=== PATIENT | female | born 1945 | race Caucasian/White ===

== ENCOUNTER 2021-12-27 14:16 | Inpatient (IN) ==
[2021-12-27] MEDS ORDERED: Ipratropium/Albuterol Neb 3 ML IH ONE ×2 (14:27→16:02)
[2021-12-27 14:52] LABS: VBG HCO3 38 mEq/L (21-27); VBG PCO2 83 mmHg (41-51); VBG PH 7.26 pH Units (7.32-7.42); VBG PO2 51 mmHg (25-50)
[2021-12-27 14:54] LABS: Basophils % 0.1 %; Hematocrit 34.5 % (35.3-44.9); Hemoglobin 10.8 g/dL (11.5-15.4); Immature Granulocytes % 0.4 % (0-4); Lymphocytes # 0.4 K/mcL (0.6-4.6); Lymphocytes % 2.7 %; Mean Corpuscular HGB Conc 31.3 g/dL (31.6-35.5); Mean Corpuscular Volume 95.8 fL (83.0-100.0); Mean Platelet Volume 10.3 fL (9.4-12.4); Monocytes # 0.7 K/mcL (0.0-1.3); Monocytes % 4.4 %; Neutrophils # 14.6 K/mcL (1.6-8.9); Platelet Count 480 K/mcL (140-400); Red Cell Distribution Width 14.6 % (11.5-14.5); Segmented Neutrophils % 92.4 %; White Blood Count 15.8 K/mcL (4.3-11.1)
[2021-12-27 15:03] LABS: INR 1.1; Prothrombin Time 12.8 Seconds (9.4-12.1)
[2021-12-27 15:06] LABS: Activated Partial Thrombo Time 29.6 Seconds (26.0-36.0)
[2021-12-27 15:15] LABS: Alanine Aminotransferase 35 Units/L (7-52); Albumin 3.8 g/dL (3.5-5.7); Albumin/Globulin Ratio 1.2 (1.1-2.2); Alkaline Phosphatase 138 Units/L (34-104); Aspartate Amino Transferase 50 Units/L (13-39); BUN/Creatinine Ratio 65 (6-26); Bilirubin,Indirect 0.5 mg/dL (0.0-1.0); Bilirubin,Total 0.5 mg/dL (0.3-1.0); Blood Urea Nitrogen 37 mg/dL (8-23); Calcium 10.1 mg/dL (8.6-10.3); Carbon Dioxide 37 mEq/L (23-29); Chloride 96 mEq/L (98-107); Creatine Kinase 279 Units/L (30-223); Ethanol < 10 mg/dL (Less than 10); Globulin 3.3 g/dL (2.4-3.5); Glucose 138 mg/dL (70-105); Osmolality,Calculated 307 (280-300); Potassium 5.1 mEq/L (3.5-5.1); Sodium 143 mEq/L (136-145); Total Protein 7.1 g/dL (6.4-8.9); Troponin I 0.24 ng/mL (< 0.04); eGFR For African Americans > 60 (> 60); eGFR For Non-African Americans > 60 (> 60)
[2021-12-27] MEDS ORDERED: Iopamidol - 370 500 ML MLS IVP ONE (15:21)
[2021-12-27] MEDS ORDERED: methylPREDNISolone 125 MG/2 ML VIAL IVP ONE (16:03)
[2021-12-27] MEDS: Ipratropium/Albuterol Neb 3 ML IH ONE (16:19)
[2021-12-27] MEDS ORDERED: 0.9 % Sodium Chloride 500 ML IVC ONE ×3 (17:04→20:11)
[2021-12-27 17:05] LABS: VBG HCO3 32 mEq/L (21-27); VBG PCO2 49 mmHg (41-51); VBG PH 7.43 pH Units (7.32-7.42); VBG PO2 165 mmHg (25-50)
[2021-12-27 18:02] LABS: Influenza A PCR Negative (Negative); Influenza B PCR Negative (Negative); Resp. Syncytial Virus PCR Negative (Negative)
[2021-12-27 18:04] LABS: SARS-CoV-2 by PCR (In House) Negative (Negative)
[2021-12-27 19:04] LABS: Bacteria,Urine Few per hpf (None-Few); Bilirubin,Urine Negative (Negative); Blood,Urine Negative (Negative); Clarity,Urine Clear (Clear); Color,Urine Light-Yellow (Yellow); Glucose,Urine (UA) Normal (Normal); Ketones,Urine Negative (Negative); Leukocyte Esterase,Urine Negative (Negative); Mucus,Urine Few per lpf (None-Few); Nitrite,Urine Negative (Negative); Protein,Urine 30 mg/dL (Neg-Trace); Specific Gravity,Urine > 1.030 (1.010-1.025); Squamous Epithelial Cell,Urine Few per hpf (None-Few); Urobilinogen,Urine Normal (Normal); WBC,Urine 0-3 per hpf (0-3)
[2021-12-27 19:05] LABS: Amphetamine Screen,Urine Negative ng/mL (Cutoff=1000); Barbiturate Screen,Urine Negative ng/mL (Cutoff=200); Benzodiazepines Screen,Urine Negative ng/mL (Cutoff=200); Cannabinoid Screen,Urine Negative ng/mL (Cutoff = 50); Cocaine Screen,Urine Negative ng/mL (Cutoff= 300); Opiate Screen,Urine Negative ng/mL (Cutoff=300); Phencyclidine Screen,Urine Negative ng/mL (Cutoff=25)
[2021-12-27] MEDS ORDERED: Ondansetron ODT 4 MG TAB.RAPDIS SL PRN (22:51)
[2021-12-27] MEDS ORDERED: Naloxone 0.4 MG/ML INJ IVP PRN (22:51)
[2021-12-28] MEDS ORDERED: Ringers Solution, Lactated 1,000 ML IVC ONE (00:16)
[2021-12-28] MEDS ORDERED: Levalbuterol 1 PUFF INHALER IH PRN (00:23)
[2021-12-28] MEDS ORDERED: Nicotine 7 MG PATCH.TD24 TD PRN (00:41)
[2021-12-28 01:04] LABS: Hematocrit 31.8 % (35.3-44.9); Hemoglobin 9.5 g/dL (11.5-15.4); Mean Corpuscular HGB Conc 29.9 g/dL (31.6-35.5); Mean Corpuscular Hemoglobin 29.4 pg (28.0-33.3); Mean Corpuscular Volume 98.5 fL (83.0-100.0); Mean Platelet Volume 10.2 fL (9.4-12.4); Platelet Count 392 K/mcL (140-400); Red Blood Count 3.23 M/mcL (3.82-4.97); Red Cell Distribution Width 14.7 % (11.5-14.5); White Blood Count 10.9 K/mcL (4.3-11.1)
[2021-12-28 01:24] LABS: Alanine Aminotransferase 27 Units/L (7-52); Albumin 3.1 g/dL (3.5-5.7); Albumin/Globulin Ratio 1.1 (1.1-2.2); Alkaline Phosphatase 103 Units/L (34-104); Aspartate Amino Transferase 36 Units/L (13-39); BUN/Creatinine Ratio 63 (6-26); Bilirubin,Total 0.3 mg/dL (0.3-1.0); Blood Urea Nitrogen 30 mg/dL (8-23); Calcium 8.6 mg/dL (8.6-10.3); Carbon Dioxide 33 mEq/L (23-29); Chloride 104 mEq/L (98-107); Globulin 2.7 g/dL (2.4-3.5); Glucose 134 mg/dL (70-105); Osmolality,Calculated 306 (280-300); Potassium 4.8 mEq/L (3.5-5.1); Sodium 144 mEq/L (136-145); Total Protein 5.8 g/dL (6.4-8.9); eGFR For African Americans > 60 (> 60); eGFR For Non-African Americans > 60 (> 60)
[2021-12-28] MEDS ORDERED: Perflutren Lipid Microsphere 1.3 ML in 0.9 % Sodium Chloride 8.7 ML IVP PRN (01:46)
[2021-12-28] MEDS ORDERED: Albuterol 2.5 MG/3 ML NEBULIZER IH PRN (01:53)
[2021-12-28] MEDS ORDERED: Levalbuterol Neb 0.63 MG/3 ML IH PRN (01:56)
[2021-12-28] MEDS ORDERED: Gadolinium Contrast Agent (WT Based) IV PRN (01:59)
[2021-12-28 02:35] LABS: Vitamin B12 > 1500 pg/mL (250-1100)
[2021-12-28] MEDS: Azithromycin 500 MG in 0.9 % Sodium Chloride 250 ML IVPB SCH ×2 (03:17→23:41)
[2021-12-28] MEDS: 0.9 % Sodium Chloride 1,000 ML IVC SCH ×2 (03:17→14:07)
[2021-12-28 03:29] LABS: Troponin I 0.43 ng/mL (< 0.04)
[2021-12-28 03:40] LABS: Thyroid Stimulating Hormone 0.145 mcIU/mL (0.340-5.600)
[2021-12-28 03:48] LABS: Creatine Kinase 172 Units/L (30-223)
[2021-12-28 04:09] LABS: Folate > 22.3 ng/mL (3.0-16.0)
[2021-12-28] MEDS: Ipratropium/Albuterol Neb 3 ML IH SCH ×3 (04:21→15:36)
[2021-12-28 04:38] LABS: ABG Base Excess 7 mEq/L (-2 to 3); ABG HCO3 37 mEq/L (21-27); ABG Oxygen Saturation 99 % (95-98); ABG PCO2 92 mmHg (35-45); ABG PH 7.21 pH Units (7.32-7.45); ABG PO2 180 mmHg (85-104); ABG TCO2 40 mEq/L (20-26)
[2021-12-28] MEDS: *HR* Heparin 5,000 UNIT/ML VIAL SQ SCH ×2 (05:16→14:11)
[2021-12-28] MEDS: MethylPREDNISolone 40 MG/ML VIAL IVP SCH ×2 (05:36→17:42)
[2021-12-28] MEDS ORDERED: *HR* LORazepam 2 MG/ML VIAL IVP ONE (08:20)
[2021-12-28] MEDS ORDERED: methylPREDNISolone 125 MG/2 ML VIAL ONE (08:40)
[2021-12-28] MEDS ORDERED: methylPREDNISolone 125 MG/2 ML VIAL IVP ONE (08:41)
[2021-12-28 08:42] LABS: ABG Base Excess 8 mEq/L (-2 to 3); ABG HCO3 37 mEq/L (21-27); ABG Oxygen Saturation 97 % (95-98); ABG PCO2 75 mmHg (35-45); ABG PO2 102 mmHg (85-104); ABG TCO2 39 mEq/L (20-26)
[2021-12-28] MEDS ORDERED: lisinopriL 20 MG TABLET PO SCH (09:00)
[2021-12-28] MEDS ORDERED: Fluticasone Propionate Nasal 50 MCG/SPRAY BOTTLE NS SCH (09:00)
[2021-12-28] MEDS ORDERED: cefTRIAXone 1,000 MG in 0.9 % Sodium Chloride 10 ML IVP SCH (09:00)
[2021-12-28] MEDS ORDERED: predniSONE 20 MG TABLET PO SCH (09:00)
[2021-12-28] MEDS ORDERED: HydrOXYzine 100 MG/2 ML VIAL IM ONE (11:33)
[2021-12-28 12:39] LABS: Triiodothyronine (T3) Free 2.3 pg/mL (2.50-3.90)
[2021-12-28] MEDS ORDERED: *HR* LORazepam 2 MG/ML VIAL IVP PRN (16:11)
[2021-12-28] MEDS: Morphine Sulfate Oral CONC 10 MG/0.5 ML ORAL.SYG SL PRN ×2 (18:06→21:25)
[2021-12-28] MEDS: *HR* LORazepam 2 MG/ML VIAL IVP PRN ×2 (18:51→21:25)
[2021-12-28 21:17] VITALS: BP 134/48; TEMP 98.4
[2021-12-28] MEDS ORDERED: Morphine Sulfate 2 MG/ML SYRINGE IVP PRN (21:45)
[2021-12-29] MEDS: *HR* LORazepam 2 MG/ML VIAL IVP PRN (00:01)
[2021-12-29] MEDS ORDERED: Morphine Sulfate 2 MG/ML SYRINGE IVP PRN (00:28)
[2021-12-29 00:34] VITALS: PULSE 75; O2SAT 68
== END 2021-12-29 01:05 | disposition expired | DRG 871 ==
LOC: EMEROOARM 14:16 → 2NENU 14:16 → SUATTDRO 22:53 → 2NENU 12-28 00:18
PROVIDERS: ADMIT Internal Medicine; ATTEND Internal Medicine